=== PATIENT | male | born 1985 | race Caucasian/White ===

== ENCOUNTER 2017-07-21 12:24 | Emergency (ER) | payer OTHER ==
[~2017-07-21] VITALS: Ht 177.8 cm; Wt 84.1 kg
[2017-07-21 12:38] VITALS: Ht 177.8 cm; Wt 84.1 kg
--- NOTE | 2017-07-21 13:45 | DIAGNOSTIC IMAGING REPORT ---
CHEST ONE VIEW PORTABLE CLINICAL HISTORY: 31 years-old Male presenting with chest pain. TECHNIQUE: Portable upright AP view of the chest was obtained. COMPARISON: None. FINDINGS: Mildly enlarged cardiac silhouette. Elevation of the left hemidiaphragm. Minimal left basilar opacity. Right lung clear. No pleural effusion or pneumothorax. Osseous structures normal. Upper abdomen normal. IMPRESSION: 1. Elevation of the left hemidiaphragm with minimal left basilar opacity, likely atelectasis. 2. Prominence of the cardiac silhouette may be secondary to portable AP technique. If there is clinical concern, PA radiograph could be obtained. Electronically signed by: Alan Lowe M.D. 07/21/2017 1:44 PM Dictated Date/Time: 07/21/2017 1:43 PM
[2017-07-21 14:36] LABS: BASO % 0.4 %; BASO ABS # 0.03 K/uL (0-0.2); COMPLETE YES; EOS % 1.2 %; HEMATOCRIT 44.2 % (42-52); IG% 0.4 %; LYMPH % 24.1 %; LYMPH ABS # 1.76 K/uL (1.2-3.4); MEAN CELL VOLUME 83.6 fL (80-100); MEAN CORPUSCULAR HEMOGLOBIN 29.3 pg (25-34); MEAN CORPUSCULAR HGB CONC 35.1 g/dl (32-36); MEAN PLATELET VOLUME 10.4 fL (7.4-10.4); MONO % 8.9 %; PLATELET COUNT 219 K/uL (130-400); RED BLOOD COUNT 5.29 M/uL (4.7-6.1)
[2017-07-21 14:43] LABS: ALT/SGPT 27 U/L (12-78); BLOOD UREA NITROGEN 11 mg/dl (7-18); BUN/CREATININE RATIO 12.8 (10-20); CARBON DIOXIDE 24 mmol/L (21-32); CHLORIDE 104 mmol/L (98-107); CREATININE 0.82 mg/dl (0.60-1.40); GLUCOSE 104 mg/dl (70-99); POTASSIUM 4.2 mmol/L (3.5-5.1); SODIUM 138 mmol/L (136-145)
[2017-07-21 14:48] LABS: INR 0.9 (0.9-1.1)
[2017-07-21 14:54] LABS: ALB/GLOB RATIO 1.2 (0.9-2); ALKALINE PHOSPHATASE 51 U/L (45-117); AST/SGOT 19 U/L (15-37)
--- NOTE | 2017-07-21 15:49 | EMERGENCY ROOM VISIT NOTE ---
History First contact with patient: 13:05 Chief Complaint: NECK PAIN Stated Complaint: LIGHT HEADED, HEAVY CHEST,PINCHED NERVE? History of Present Illness The patient is a 31 year old male who presents to the Emergency Room with complaints of neck pain and intermittent lightheadedness and shortness of breath. The patient states that last week, he woke up with some pain in the left side of the neck. He initially thought that maybe he had slept on the neck wrong. He states the pain has been intermittent since then and is now left side of the neck and radiates into the shoulder and part way down the arm. He reports some heaviness in the left arm. He states that he is an avid runner and is typically able to run 9-10 miles without difficulty. He states that after noticing the pain, he ran one-mile and began to feel a tightness in the chest and shortness of breath. He states that since then, he has felt very out of shape when running. He has had some dizziness and lightheadedness off and on and is unsure if this is because he is anxious. The patient does admit to feeling very anxious regarding the symptoms. He states he has had some diaphoresis. He reports that at this time, he is asymptomatic. He has noticed the neck pain mostly when lying down to sleep at night. He states that the chest tightness occurs at times with exertion. He made an appointment with his primary care provider tomorrow. He states that he is a heavy drinker and does smoke cigarettes socially, but not frequently. He has a history of asthma and is unsure if this feels similar. He denies any history of heart disease. Review of Systems A complete 10 point review of systems was reviewed with the patient with pertinent positives and negatives as per history of present illness. All else were negative. Social History Smoking Status: Never Smoker Current/Historical Medications No Active Prescriptions or Reported Meds Physical Exam Vital Signs Date Time Temp Pulse Resp B/P (MAP) Pulse Ox O2 Delivery O2 Flow Rate FiO2 07/21/17 16:10 164/103 07/21/17 16:10 37.0 88 16 164/103 98 07/21/17 13:30 88 16 164/108 98 Room Air 07/21/17 12:51 76 07/21/17 12:38 37.0 73 18 179/105 97 Room Air Physical Exam VITALS: Vitals are noted on the nurse's note and reviewed by myself. Vital signs stable. GENERAL: This is a 31-year-old male, in no acute distress, nondiaphoretic, well- developed well-nourished. SKIN: The skin was without rashes. EARS: External auditory canals clear, tympanic membranes pearly scott without erythema or effusion bilaterally. EYES: Pupils equal round and reactive to light and accommodation. Conjunctivae without injection, sclerae without icterus. MOUTH: Mucous membranes moist. Tonsils are not enlarged. Pharynx without erythema or exudate. NECK: Supple without nuchal rigidity. No lymphadenopathy. There is reproducible tenderness in the left cervical paraspinous muscles and left trapezius muscle. HEART: Regular rate and rhythm without murmurs gallops or rubs. LUNGS: Clear to auscultation bilaterally without wheezes, rales or rhonchi. No retractions or accessory muscle use. MUSCULOSKELETAL: Strength 5/5 in bilateral upper extremities. NEURO: Patient was alert and oriented to person place and time. Normal sensation to light and sharp touch. No focal neurological deficits. Medical Decision & Procedures ER Provider Diagnostic Interpretation: CHEST ONE VIEW PORTABLE CLINICAL HISTORY: 31 years-old Male presenting with chest pain. TECHNIQUE: Portable upright AP view of the chest was obtained. COMPARISON: None. FINDINGS: Mildly enlarged cardiac silhouette. Elevation of the left hemidiaphragm. Minimal left basilar opacity. Right lung clear. No pleural effusion or pneumothorax. Osseous structures normal. Upper abdomen normal. IMPRESSION: 1. Elevation of the left hemidiaphragm with minimal left basilar opacity, likely atelectasis. 2. Prominence of the cardiac silhouette may be secondary to portable AP technique. If there is clinical concern, PA radiograph could be obtained. Laboratory Results 07/21/17 13:25 Red Blood Count 5.29, Mean Corpuscular Volume 83.6, Mean Corpuscular Hemoglobin 29.3, Mean Corpuscular Hemoglobin Concent 35.1, Mean Platelet Volume 10.4, Neutrophils (%) (Auto) 65.0, Lymphocytes (%) (Auto) 24.1, Monocytes (%) (Auto) 8.9, Eosinophils (%) (Auto) 1.2, Basophils (%) (Auto) 0.4, Neutrophils # (Auto) 4.74, Lymphocytes # (Auto) 1.76, Monocytes # (Auto) 0.65, Eosinophils # (Auto) 0.09, Basophils # (Auto) 0.03 07/21/17 13:25 Test 07/21/17 13:25 White Blood Count 7.30 K/uL (4.8-10.8) Red Blood Count 5.29 M/uL (4.7-6.1) Hemoglobin 15.5 g/dL (14.0-18.0) Hematocrit 44.2 % (42-52) Mean Corpuscular Volume 83.6 fL (80-100) Mean Corpuscular Hemoglobin 29.3 pg (25-34) Mean Corpuscular Hemoglobin Concent 35.1 g/dl (32-36) Platelet Count 219 K/uL (130-400) Mean Platelet Volume 10.4 fL (7.4-10.4) Neutrophils (%) (Auto) 65.0 % Lymphocytes (%) (Auto) 24.1 % Monocytes (%) (Auto) 8.9 % Eosinophils (%) (Auto) 1.2 % Basophils (%) (Auto) 0.4 % Neutrophils # (Auto) 4.74 K/uL (1.4-6.5) Lymphocytes # (Auto) 1.76 K/uL (1.2-3.4) Monocytes # (Auto) 0.65 K/uL (0.11-0.59) Eosinophils # (Auto) 0.09 K/uL (0-0.5) Basophils # (Auto) 0.03 K/uL (0-0.2) RDW Standard Deviation 39.0 fL (36.4-46.3) RDW Coefficient of Variation 13.1 % (11.5-14.5) Immature Granulocyte % (Auto) 0.4 % Immature Granulocyte # (Auto) 0.03 K/uL (0.00-0.02) Prothrombin Time 10.0 SECONDS (9.0-12.0) Prothromb Time International Ratio 0.9 (0.9-1.1) Activated Partial Thromboplast Time 25.6 SECONDS (21.0-31.0) Partial Thromboplastin Ratio 1.0 D-Dimer < 190 ug/L FEU (0-500) Anion Gap 10.0 mmol/L (3-11) Est Creatinine Clear Calc Drug Dose 133.5 ml/min Estimated GFR () 135.6 Estimated GFR (Non- 117.0 BUN/Creatinine Ratio 12.8 (10-20) Calcium Level 9.0 mg/dl (8.5-10.1) Total Bilirubin 0.3 mg/dl (0.2-1) Aspartate Amino Transf (AST/SGOT) 19 U/L (15-37) Alanine Aminotransferase (ALT/SGPT) 27 U/L (12-78) Alkaline Phosphatase 51 U/L (45-117) Total Creatine Kinase 98 U/L (39-308) Troponin I < 0.015 ng/ml (0-0.045) Total Protein 7.7 gm/dl (6.4-8.2) Albumin 4.2 gm/dl (3.4-5.0) Globulin 3.5 gm/dl (2.5-4.0) Albumin/Globulin Ratio 1.2 (0.9-2) Thyroid Stimulating Hormone (TSH) 1.010 uIu/ml (0.300-4.500) ECG Rate (beats per minute): 62 Rhythm: normal sinus Findings: no acute ischemic change, no ectopy Comparison ECG Date: no prior available ED Course The patient was evaluated as above. Labs were drawn and IV access was obtained. Patient was reevaluated and findings were discussed. Discharge instructions were reviewed with the patient. The patient verbalized understanding of my assessment and treatment plan and was discharged home in good condition. Medical Decision Differential diagnosis includes acute coronary syndrome, pulmonary embolism, pneumothorax, pericarditis, myocarditis, endocarditis, anxiety, cervical radiculopathy, musculoskeletal pain, costochondritis, pneumonia, aortic dissection, among others. The patient is a 31-year-old male who presents today complaining of left-sided neck pain and a few episodes of chest pain over the past week. Labs were unremarkable, with no leukocytosis, anemia or concerning electrolyte abnormalities. Troponin was not elevated. D-dimer was not elevated. Chest x- ray showed no acute disease. EKG showed no ischemia or ectopy. Patient was persistently hypertensive. I feel his pain is likely musculoskeletal, however he seemed very anxious regarding his symptoms and this is likely what is causing his blood pressure to be so high. He does have a follow-up appointment scheduled with his primary care provider tomorrow and I feel this is reasonable. He complains of some mild neck pain on my exam, but is otherwise asymptomatic. I feel he is safe for discharge home but he was instructed to return here if he has any worsening of his symptoms or new/concerning symptoms. The patient's case was reviewed with Dr. Isaac, ED attending physician, who agreed with my assessment and treatment plan. Based on the patient's presentation and work up, I feel the patient is stable for outpatient treatment. The patient was educated to return to the emergency department for any worsening of their current condition or new/concerning symptoms. He will follow up with his PCP. Medication Reconcilliation Current Medication List: was personally reviewed by me Blood Pressure Screening Patient's blood pressure: Elevated blood pressure Blood pressure disposition: Referred to PCP Impression Primary Impression: Neck pain on left side Departure Information Dispostion Home / Self-Care Condition GOOD Prescriptions No Active Prescriptions or Reported Meds Referrals No Doctor, Assigned (PCP) Patient Instructions My [facility] Additional Instructions Follow-up with your primary care provider tomorrow as scheduled. Your blood pressure was high today and should be rechecked by your primary care provider. For pain control, you can use the following [id number] medicines (if >12 yo): - Regular strength (325mg/tab) Tylenol (acetaminophen) 2 tabs every 4-6 hours as needed. Do not exceed 12 tablets in a 24 hour period. Avoid taking more than 4 grams (4000 mg) of Tylenol per day. This includes any other sources of acetaminophen you may take on a regular basis. - Regular strength (200 mg/tab) Advil (ibuprofen) 1-2 tabs every 4-6 hours as needed. Do not exceed a dose of 3200 mg per day. Return to the Emergency Department if your current symptoms worsen despite treatment course outlined above, or if you develop any of the following symptoms : worsening chest pain, associated jaw/arm pain, nausea, dizziness, shortness of breath, bloody cough, or fainting.
[2017-07-21 16:10] VITALS: BP 164/103; PULSE 88; TEMP 37; O2SAT 98
== END 2017-07-21 16:11 | disposition home or self-care (01) ==
LOC: C.EDB 12:26
DX: M54.2 Cervicalgia (principal); R07.9 Chest pain, unspecified

== ENCOUNTER → 2017-08-07 | Outpatient (CLI) | payer OTHER ==
--- NOTE | 2017-08-07 12:01 | DIAGNOSTIC IMAGING REPORT ---
DIAPHRAGMATIC SNIFF TEST (fluoroscopy less than 1 hour) CLINICAL HISTORY: Shortness of breath. Elevated left hemidiaphragm. COMPARISON STUDY: Chest x-ray dated 07/21/2017 FINDINGS: Acquired breathing, the right diaphragm is normally. The left diaphragm demonstrates little movement. When performing the sniff test, the right diaphragm moves inferiorly. The left hemidiaphragm "vibrates", but demonstrates no significant anterior or superior excursion. IMPRESSION: No significant left diaphragmatic excursion is visualized either during quiet breathing or during the sniff test. Electronically signed by: Dylan Rose M.D. 08/07/2017 12:00 PM Dictated Date/Time: 08/07/2017 11:58 AM
== END | disposition home or self-care (01) ==
LOC: C.RAD 11:30
PROVIDERS: ATTEND Internal Medicine
DX: R06.02 Shortness of breath (principal); J98.6 Disorders of diaphragm

== ENCOUNTER 2017-11-17 23:14 | Emergency (ER) | payer OTHER ==
[~2017-11-17] VITALS: Ht 177.8 cm; Wt 93.6 kg
[2017-11-17 23:15] VITALS: TEMP 36.9; Ht 177.8 cm; Wt 93.6 kg
[2017-11-18 00:10] LABS: BASO % 0.3 %; BASO ABS # 0.03 K/uL (0-0.2); EOS % 1.4 %; EOS ABS # 0.13 K/uL (0-0.5); HEMATOCRIT 42.7 % (42-52); IG# 0.02 K/uL (0.00-0.02); LYMPH % 23.1 %; LYMPH ABS # 2.07 K/uL (1.2-3.4); MEAN CELL VOLUME 82.9 fL (80-100); MEAN CORPUSCULAR HEMOGLOBIN 29.1 pg (25-34); MEAN CORPUSCULAR HGB CONC 35.1 g/dl (32-36); MEAN PLATELET VOLUME 10.2 fL (7.4-10.4); MONO % 8.4 %; MONO ABS # 0.75 K/uL (0.11-0.59); NEUT % 66.6 %; NEUT ABS # 5.97 K/uL (1.4-6.5); PLATELET COUNT 229 K/uL (130-400); RED CELL DISTRIBUTION WIDTH SD 38.9 fL (36.4-46.3); WHITE BLOOD COUNT 8.97 K/uL (4.8-10.8)
[2017-11-18 00:20] LABS: ALT/SGPT 36 U/L (12-78); BLOOD UREA NITROGEN 14 mg/dl (7-18); CALCIUM 8.9 mg/dl (8.5-10.1); CARBON DIOXIDE 23 mmol/L (21-32); CREATININE 0.95 mg/dl (0.60-1.40); GLUCOSE 84 mg/dl (70-99); POTASSIUM 3.5 mmol/L (3.5-5.1); SODIUM 136 mmol/L (136-145)
[2017-11-18 00:25] LABS: ALKALINE PHOSPHATASE 50 U/L (45-117); AST/SGOT 24 U/L (15-37); CKMB 1.6 ng/ml (0.5-3.6); TOTAL PROTEIN 7.6 gm/dl (6.4-8.2)
--- NOTE | 2017-11-18 02:11 | EMERGENCY ROOM VISIT NOTE ---
History First contact with patient: 23:28 Chief Complaint: CARDIAC ASSESSMENT Stated Complaint: HEAVY CHEST, HTN, CHEST DISCOMORT, SOB Nursing Triage Summary: chest heaviness History of Present Illness The patient is a 32 year old male who presents to the Emergency Room with complaints of chest pressure and elevated blood pressure. The patient states that he woke up 5 days ago and noticed that his chest felt tight. He describes the feeling as a pressure. He states that he took his blood pressure and noticed it was elevated. He has been checking his blood pressure frequently at home and it has been elevated as high as 170/110. He states that he also has a pain in the right side of his neck. The patient had similar symptoms several months ago and was evaluated here at that time. He followed up with his primary care provider and had CT and MRI of his neck which were negative. He states that his blood pressure was elevated, however he has decreased his alcohol intake and has been eating healthier foods and this has helped to improve his blood pressure without the need for any medication. He contacted his primary care provider today and they told him to go to the ER for evaluation. He has had one or 2 episodes of shortness of breath which resolved quickly. He denies any recent illnesses, fevers/chills or cardiac history. Review of Systems A complete 10 point review of systems was reviewed with the patient with pertinent positives and negatives as per history of present illness. All else were negative. Past Medical/Surgical History Medical Problems: (1) No significant past medical history Surgical Problems: (1) No significant past surgical history Social History Smoking Status: Never Smoker Alcohol Use: occasionally Marital Status: single Occupation Status: employed Current/Historical Medications No Active Prescriptions or Reported Meds Physical Exam Vital Signs Date Time Temp Pulse Resp B/P (MAP) Pulse Ox O2 Delivery O2 Flow Rate FiO2 11/18/17 02:25 78 16 179/109 99 11/18/17 01:26 76 16 166/104 98 Room Air 11/17/17 23:15 36.9 91 18 165/110 98 Room Air Physical Exam VITALS: Vitals are noted on the nurse's note and reviewed by myself. Vital signs stable. GENERAL: This is a 32-year-old male, in no acute distress, nondiaphoretic, well- developed well-nourished. SKIN: The skin was without rashes. HEAD: Normocephalic atraumatic. EARS: External auditory canals clear, tympanic membranes pearly scott without erythema or effusion bilaterally. EYES: Pupils equal round and reactive to light and accommodation. MOUTH: Mucous membranes moist. Tonsils are not enlarged. Pharynx without erythema or exudate. NECK: Supple without nuchal rigidity. No lymphadenopathy. No tenderness of the cervical spine. HEART: Regular rate and rhythm without murmurs gallops or rubs. LUNGS: Clear to auscultation bilaterally without wheezes, rales or rhonchi. ABDOMEN: Positive bowel sounds x 4. Soft, nontender. NEURO: Patient was alert and oriented to person place and time. Medical Decision & Procedures ER Provider Diagnostic Interpretation: CHEST: Chronic elevation of the left hemidiaphragm. No infiltrates. Unchanged from previous. Interpreted by myself. Laboratory Results 11/17/17 23:40 Red Blood Count 5.15, Mean Corpuscular Volume 82.9, Mean Corpuscular Hemoglobin 29.1, Mean Corpuscular Hemoglobin Concent 35.1, Mean Platelet Volume 10.2, Neutrophils (%) (Auto) 66.6, Lymphocytes (%) (Auto) 23.1, Monocytes (%) (Auto) 8.4, Eosinophils (%) (Auto) 1.4, Basophils (%) (Auto) 0.3, Neutrophils # (Auto) 5.97, Lymphocytes # (Auto) 2.07, Monocytes # (Auto) 0.75, Eosinophils # (Auto) 0.13, Basophils # (Auto) 0.03 11/17/17 23:40 Test 11/17/17 23:40 White Blood Count 8.97 K/uL (4.8-10.8) Red Blood Count 5.15 M/uL (4.7-6.1) Hemoglobin 15.0 g/dL (14.0-18.0) Hematocrit 42.7 % (42-52) Mean Corpuscular Volume 82.9 fL (80-100) Mean Corpuscular Hemoglobin 29.1 pg (25-34) Mean Corpuscular Hemoglobin Concent 35.1 g/dl (32-36) Platelet Count 229 K/uL (130-400) Mean Platelet Volume 10.2 fL (7.4-10.4) Neutrophils (%) (Auto) 66.6 % Lymphocytes (%) (Auto) 23.1 % Monocytes (%) (Auto) 8.4 % Eosinophils (%) (Auto) 1.4 % Basophils (%) (Auto) 0.3 % Neutrophils # (Auto) 5.97 K/uL (1.4-6.5) Lymphocytes # (Auto) 2.07 K/uL (1.2-3.4) Monocytes # (Auto) 0.75 K/uL (0.11-0.59) Eosinophils # (Auto) 0.13 K/uL (0-0.5) Basophils # (Auto) 0.03 K/uL (0-0.2) RDW Standard Deviation 38.9 fL (36.4-46.3) RDW Coefficient of Variation 13.0 % (11.5-14.5) Immature Granulocyte % (Auto) 0.2 % Immature Granulocyte # (Auto) 0.02 K/uL (0.00-0.02) Anion Gap 9.0 mmol/L (3-11) Est Creatinine Clear Calc Drug Dose 127.1 ml/min Estimated GFR () 121.4 Estimated GFR (Non- 104.8 BUN/Creatinine Ratio 14.4 (10-20) Calcium Level 8.9 mg/dl (8.5-10.1) Total Bilirubin 0.7 mg/dl (0.2-1) Aspartate Amino Transf (AST/SGOT) 24 U/L (15-37) Alanine Aminotransferase (ALT/SGPT) 36 U/L (12-78) Alkaline Phosphatase 50 U/L (45-117) Total Creatine Kinase 115 U/L (39-308) Creatine Kinase MB 1.6 ng/ml (0.5-3.6) Creatine Kinase MB Ratio 1.4 (0-3.0) Troponin I < 0.015 ng/ml (0-0.045) Total Protein 7.6 gm/dl (6.4-8.2) Albumin 4.0 gm/dl (3.4-5.0) Globulin 3.6 gm/dl (2.5-4.0) Albumin/Globulin Ratio 1.1 (0.9-2) ECG Indication: chest pain Rate (beats per minute): 66 Rhythm: normal sinus Findings: no acute ischemic change, no ectopy Change: no significant change Medical Decision Differential diagnosis includes acute coronary syndrome, pulmonary embolism, pneumothorax, pericarditis, myocarditis, endocarditis, anxiety, musculoskeletal pain, GERD, costochondritis, pneumonia, among others. The patient is a 32-year-old male who presents today complaining of chest tightness/pressure. Patient had similar episode several months ago and had a full workup which was negative. He has also been seeing his primary care provider regarding these symptoms and has had workup as an outpatient. Labs revealed no leukocytosis, anemia or concerning electrolyte abnormalities. Cardiac enzymes negative 1. EKG was interpreted by myself and shows a normal sinus rhythm similar to previous EKG. Patient's blood pressure is elevated today. I do feel that is likely a component of anxiety related to the patient' s symptoms. The patient's case was reviewed with Dr. Ocampo, ED attending physician, who agreed with my assessment and treatment plan. Based on the patient's presentation and work up, I feel the patient is stable for outpatient treatment. The patient was educated to return to the emergency department for any worsening of their current condition or new/concerning symptoms. He will follow up with his PCP. Medication Reconcilliation Current Medication List: was personally reviewed by me Blood Pressure Screening Patient's blood pressure: Elevated blood pressure Blood pressure disposition: Elevated BP felt to be situational, Referred to PCP Impression Primary Impression: Chest tightness Departure Information Dispostion Home / Self-Care Condition GOOD Prescriptions No Active Prescriptions or Reported Meds Referrals Gris ROSENBERG M.D. (PCP) Patient Instructions [facility] Additional Instructions You have been treated in the Emergency Department for your Non-Cardiac Chest Pain. Laboratory results and Imaging Studies have ruled out any cardiac or pulmonary cause of your chest pain. For pain control, you can use the following [id number] medicines (if >12 yo): - Regular strength (325mg/tab) Tylenol (acetaminophen) 2 tabs every 4-6 hours as needed. Do not exceed 12 tablets in a 24 hour period. Avoid taking more than 4 grams (4000 mg) of Tylenol per day. This includes any other sources of acetaminophen you may take on a regular basis. - Regular strength (200 mg/tab) Advil (ibuprofen) 1-2 tabs every 4-6 hours as needed. Do not exceed a dose of 3200 mg per day. You should schedule a follow-up appointment with your Primary Care Provider in 2 -3 days for further evaluation from today's Emergency Department visit. You may consider taking Prilosec (omeprazole) 40 mg daily. You can get this medication over the counter. Return to the Emergency Department if your current symptoms worsen despite treatment course outlined above, or if you develop any of the following symptoms : worsening chest pain, associated jaw/arm pain, nausea, dizziness, shortness of breath, bloody cough, or fainting.
[2017-11-18 02:25] VITALS: BP 179/109; PULSE 78; O2SAT 99
--- NOTE | 2017-11-18 08:20 | DIAGNOSTIC IMAGING REPORT ---
CHEST ONE VIEW PORTABLE CLINICAL HISTORY: Chest pain. Chest heaviness. COMPARISON STUDY: Chest radiograph July 21, 2017. FINDINGS: Moderate elevation of the left hemidiaphragm is unchanged. There is suspected mild cardiomegaly. There is no evidence for pulmonary edema. There is no consolidation to suggest pneumonia. No pneumothorax or pleural effusion is noted. Minimal left basilar opacity represents atelectasis. IMPRESSION: 1. No acute cardiopulmonary findings. 2. No change in moderate elevation of the left hemidiaphragm. 3. Stable cardiomegaly. Electronically signed by: Dimitri Gabriel M.D. 11/18/2017 8:19 AM Dictated Date/Time: 11/18/2017 8:18 AM
== END 2017-11-18 02:25 | disposition home or self-care (01) ==
LOC: C.EDB 23:15
DX: R07.89 Other chest pain (principal)